=== PATIENT | female | born 1960 | race African-American/Black ===

== ENCOUNTER 2018-06-12 08:21 | Emergency (ER) | payer OTHER ==
[~2018-06-12] VITALS: Ht 157.5 cm; Wt 65.0 kg
[2018-06-12] MEDS ORDERED: ACETAMINOPHEN 325MG TABLET PO ONE (09:00)
[2018-06-12 10:05] VITALS: BP 133/76
== END 2018-06-12 10:09 | disposition home or self-care (01) ==
LOC: ER 08:21
DX: R07.89 Other chest pain (principal); M54.5 Low back pain; I10 Essential (primary) hypertension
CPT/HCPCS: 71045; 93005; 99284